=== PATIENT | male | born 1970 | race Hispanic/Latino ===

== ENCOUNTER 2018-07-07 12:21 | Emergency (ER) | payer SELFPAY ==
[2018-07-07] MEDS ORDERED: LIDOCAINE 1% W/EPI 1:100,000 MDV 50 ML VIAL ONE (12:46)
--- NOTE | 2018-07-07 12:50 | EDPHYS ---
Physician Documentation [facility] Name: Александр Cloud Jr Age: 48 yrs Sex: Male : 1970 Arrival Date: 07/07/2018 Time: 12:22 Bed 23 Private MD: ED Physician Zohaib Bentley HPI: 07/07 12:44 This 48 yrs old Male presents to ER via Ambulatory with complaints of ps1 Toothache, Headache. 12:44 patient states that he needs a root canal in upper and lower molars on left. Pain rated ps1 as severe described as throbbing and now giving him a headache. No fever. Tried Motrin for a day but subtherapeutic doses. . Historical: - Allergies: 12:27 No Known Allergies; tw2 - Home Meds: 12: None [Active]; tw2 - PMHx: 12: None; tw2 - PSHx: 12:27 None; tw2 - Immunization history:: Adult Immunizations. - Social history:: Smoking status: Smoking status: Patient uses tobacco products, smokes one pack cigarettes per day. - Ebola Screening: : Patient denies travel to an Ebola-affected area in the 21 days before illness onset. ROS: 12:44 Constitutional: Negative for fever, chills, and weight loss, Eyes: Negative for injury, ps1 pain, redness, and discharge, Cardiovascular: Negative for chest pain, palpitations, and edema, Respiratory: Negative for shortness of breath, cough, wheezing, and pleuritic chest pain, Abdomen/GI: Negative for abdominal pain, nausea, vomiting, diarrhea, and constipation, MS/Extremity: Negative for injury and deformity, Skin: Negative for injury, rash, and discoloration, Neuro: Negative for headache, weakness, numbness, tingling, and seizure. 12:44 ENT: Positive for dental pain. Exam: 12:44 Constitutional: This is a well developed, well nourished patient who is awake, alert, ps1 and in no acute distress. Head/Face: Normocephalic, atraumatic. Eyes: Pupils equal round and reactive to light, extra-ocular motions intact. Lids and lashes normal. Conjunctiva and sclera are non-icteric and not injected. Chest/axilla: Normal chest wall appearance and motion. Nontender with no deformity. No lesions are appreciated. Cardiovascular: Regular rate and rhythm. No gallops, murmurs, or rubs. Normal PMI, no JVD. No pulse deficits. Respiratory: Lungs have equal breath sounds bilaterally, clear to auscultation and percussion. No rales, rhonchi or wheezes noted. No increased work of breathing, no retractions or nasal flaring. Abdomen/GI: Soft, non-tender, with normal bowel sounds. No distension or tympany. No guarding or rebound. No evidence of tenderness throughout. Skin: Warm, dry with normal turgor. Normal color with no rashes, no lesions, and no evidence of cellulitis. Neuro: Awake and alert, GCS 15, oriented to person, place, time, and situation. Cranial nerves II-XII grossly intact. Sensory grossly intact. Psych: Awake, alert, with orientation to person, place and time. Behavior, mood, and affect are within normal limits. 12:44 ENT: Mouth: is normal, no abscess, Dental exam: dental caries, gum swelling, missing teeth, pain, that is severe, specifically in the upper left second molar (#15), upper left third molar (#16), lower left third molar (#17) and lower left second molar (#18), Breath odor: smells like rotten eggs. Vital Signs: 12:26 BP 167 / 110; Pulse 79; Resp 18; Temp 97.8(O); Pulse Ox 99% on R/A; Weight 81.65 kg tw2 (R); Height 5 ft. 4 in. (162.56 cm); Pain 10/10; 12:58 BP 171 / 81; Pulse 75; Resp 18; Pulse Ox 98% on R/A; aj1 12:26 Body Mass Index 30.90 (81.65 kg, 162.56 cm) tw2 Procedures: 12:44 Nerve block: (dental) of left inferior alveolar nerve, periapical block, lingual, long ps1 buccal, superior alveolar nerve. . MDM: 12:44 Data reviewed: vital signs, nurses notes, and as a result, I will discharge patient. ps1 12:50 Patient medically screened. ps1 Administered Medications: No medications were administered Disposition: 07/07/18 12:50 Discharged to Home. Impression: Acute dental pain, Periodontal disease. - Condition is Stable. - Discharge Instructions: Dental Pain. - Prescriptions for chlorhexidine gluconate 0.12 % Mucous Membrane mouthwash - place 15 milliliter by MUCOUS MEMBRANE route 2 times per day after brushing teeth, swish in mouth for 30 seconds then spit out; 300 milliliter. Clindamycin HCl 300 mg Oral Capsule - take 1 capsule by ORAL route every 6 hours for 10 days; 40 capsule. Tramadol 50 mg Oral Tablet - take 1 tablet by ORAL route every 8 hours as needed; 12 tablet. Medrol (Sid) 4 mg Oral Tablets, Dose Pack - take 1 tablet by ORAL route as directed - follow package instructions; 1 packet. - Medication Reconciliation Form, Thank You Letter, Antibiotic Education, Prescription Opioid Use form. - Follow up: Private Physician; When: Upon discharge from the Emergency Department; Reason: Further diagnostic work-up, Continuance of care. Follow up: Emergency Department; When: As needed; Reason: Worsening of condition. - Problem is chronic. - Symptoms have worsened. Signatures: Lanny Bose RN RN aj1 Saumya Kc RN RN tw2 Zohaib Bentley MD MD ps1 Corrections: (The following items were deleted from the chart) 12:59 12:50 07/07/2018 12:50 Discharged to Home. Impression: Acute dental pain; Periodontal aj1 disease. Condition is Stable. Forms are Medication Reconciliation Form, Thank You Letter, Antibiotic Education, Prescription Opioid Use. Follow up: Private Physician; When: Upon discharge from the Emergency Department; Reason: Further diagnostic work-up, Continuance of care. Follow up: Emergency Department; When: As needed; Reason: Worsening of condition. Problem is chronic. Symptoms have worsened. ps1
--- NOTE | 2018-07-07 12:50 | ER ---
Nurse's Notes [facility] Name: Александр Cloud Jr Age: 48 yrs Sex: Male : 1970 Arrival Date: 07/07/2018 Time: 12:22 Bed 23 Private MD: Diagnosis: Acute dental pain;Periodontal disease Presentation: 07/07 12:25 Presenting complaint: Patient states: my tooth has been hurting for months, and i was tw2 told it was going to be 4 hundred dollars to pull them and now i am having a headache and the back of my ears there is pain. Transition of care: patient was not received from another setting of care. Onset of symptoms was July 07, 2018. Risk Assessment: Do you want to hurt yourself or someone else? Patient reports no desire to harm self or others. Initial Sepsis Screen: Does the patient meet any 2 criteria? No. Patient's initial sepsis screen is negative. Does the patient have a suspected source of infection? No. Patient's initial sepsis screen is negative. Care prior to arrival: None. 12:25 Method Of Arrival: Ambulatory tw2 12:25 Acuity: MAJOR 3 tw2 Triage Assessment: 12:26 General: Appears uncomfortable, Behavior is anxious. Pain: Complains of pain in mouth tw2 and headache. EENT: Reports pain since started few months ago an its getting worse. Historical: - Allergies: 12:27 No Known Allergies; tw2 - Home Meds: 12:27 None [Active]; tw2 - PMHx: 12:27 None; tw2 - PSHx: 12:27 None; tw2 - Immunization history:: Adult Immunizations. - Social history:: Smoking status: Smoking status: Patient uses tobacco products, smokes one pack cigarettes per day. - Ebola Screening: : Patient denies travel to an Ebola-affected area in the 21 days before illness onset. Screenin:30 Abuse screen: Denies threats or abuse. Denies injuries from another. Nutritional aj1 screening: No deficits noted. Tuberculosis screening: No symptoms or risk factors identified. 12:59 Fall Risk None identified. aj1 Assessment: 12:30 General: Appears uncomfortable, Behavior is anxious, crying, restless. Pain: Complains aj1 of pain in left ear and left jaw Pain currently is 10 out of 10 on a pain scale. Neuro: Level of Consciousness is awake, alert, obeys commands. Cardiovascular: Patient's skin is warm and dry. Respiratory: Airway is patent Respiratory effort is even, unlabored, Respiratory pattern is regular, symmetrical. GI: No signs and/or symptoms were reported involving the gastrointestinal system. : No signs and/or symptoms were reported regarding the genitourinary system. EENT: Reports toothache for months, that got worse over the past few days. Derm: Skin is pink, warm \T\ dry. normal. Musculoskeletal: Circulation, motion, and sensation intact. 12:34 Reassessment: Dr. Bentley at bedside. aj1 12:58 Reassessment: Patient states that he is feeling much better since Dr. Bentley numbed his aj1 mouth. Vital Signs: 12:26 BP 167 / 110; Pulse 79; Resp 18; Temp 97.8(O); Pulse Ox 99% on R/A; Weight 81.65 kg tw2 (R); Height 5 ft. 4 in. (162.56 cm); Pain 10/10; 12:58 BP 171 / 81; Pulse 75; Resp 18; Pulse Ox 98% on R/A; aj1 12:26 Body Mass Index 30.90 (81.65 kg, 162.56 cm) tw2 ED Course: 12:22 Patient arrived in ED. rg4 12:26 Triage completed. tw2 12:26 Arm band placed on. tw2 12:29 Zohaib Bentley MD is Attending Physician. ps1 12:29 Lanny Bose, RN is Primary Nurse. aj1 12:30 Patient has correct armband on for positive identification. Bed in low position. Call aj1 light in reach. Side rails up X 1. 12:30 No provider procedures requiring assistance completed. aj1 12:58 Patient did not have IV access during this emergency room visit. aj1 Administered Medications: No medications were administered Outcome: 12:50 Discharge ordered by . ps1 12:59 Discharged to home ambulatory. aj1 12:59 Condition: good 12:59 Discharge instructions given to patient, Instructed on discharge instructions, follow up and referral plans. medication usage, Demonstrated understanding of instructions, follow-up care, medications, Prescriptions given X 4. 12:59 Patient left the ED. aj1 Signatures: Lanny Bose RN RN aj1 Saumya Kc RN RN tw2 Angelika Bloom rg4 Zohaib Bentley, MD ps1
== END 2018-07-07 12:59 | disposition home or self-care (01) ==
LOC: ER 12:21
DX: K05.6 Periodontal disease, unspecified (principal); F17.210 Nicotine dependence, cigarettes, uncomplicated
CPT/HCPCS: 99282